=== PATIENT | female | born 1950 | race Caucasian/White ===

== ENCOUNTER 2016-12-23 16:20 | Emergency (ER) | payer BC, MEDICARE ==
--- NOTE | ~2016-12-23 | CR72 ---
[facility] A Service of [facility] RADIOLOGY TEXT RESULTS PATIENT: ELVA TYLER LOCATION: [facility] : 50 UNIT #: [id number] AGE: [address]: Abelino Yepez DO SEX: F ORDER DR: [id number] [facility] [address] [place], [place] [address] [id number] E MR#: [id number] Acc #: [id number] NAME: ELVA TYLER : 1950 SEX: F STUDY DATE/TIME: 12/23/2016 15:59 UNIT: [facility] ROOM: STUDY DESCRIPTION: CR Chest Single View Portable Attending Physician: Abelino Yepez D.O. Ordering Physician: Abelino Yepez D.O. Primary Care Physician: Priya Whaley M.D. MEDICAL IMAGING REPORT This report is preliminary unless electronic signature is present EXAM Portable chest, 12/23/2016 HISTORY Shortness of breath, cough and generalized weakness for 1 week, asthma. FINDINGS The heart is normal in size. There is poor inspiratory result with bibasilar atelectasis. The lungs are otherwise clear. There are no pleural effusions. IMPRESSION No active pulmonary disease. Dictated by... Benjy Strong M.D. THIS IS AN ELECTRONICALLY VERIFIED REPORT Benjy Strong M.D. at 12/24/2016 10:49 AM DOMINIK/millie TD: 12/23/2016 23:19 JOB #: [id number] MEDICAL IMAGING REPORT COPY
--- NOTE | ~2016-12-23 | EKG ---
PATIENT: ELVA TYLER UNIT #: [id number] Ventricular Rate: 60 BPM Atrial Rate: 60 BPM P-R Interval: 170 ms QRS Duration: 80 ms Q-T Interval: 434 ms QTC Calculation(Bezet): 434 ms P [place]: 14 degrees Calculated R [place]: -15 degrees Calculated T [place]: 15 degrees Diagnosis Line: Normal sinus rhythm Diagnosis Line: Normal ECG Diagnosis Line: No previous ECGs available Diagnosis Line: Confirmed by LIBORIO ADAM MD ([id number]) on 12/25/2016 Diagnosis Line: 7:23:43 PM INTERPRETING MD: KIA JONES
--- NOTE | ~2016-12-23 | CT16 ---
[facility] A Service [facility] RADIOLOGY TEXT RESULTS PATIENT: ELVA TYLER LOCATION: [facility] : 50 UNIT #: [id number] AGE: [address]: Abelino Yepez DO SEX: F ORDER DR: [id number] [facility] [address] [place], [place] [address] [id number] E MR#: [id number] Acc #: [id number] NAME: ELVA TYLER : 1950 SEX: F STUDY DATE/TIME: 12/23/2016 17:20 UNIT: [facility] ROOM: STUDY DESCRIPTION: CT Angio Chest for PE Attending Physician: Abelino Yepez D.O. Ordering Physician: Abelino Yepez D.O. Primary Care Physician: Priya Whaley M.D. MEDICAL IMAGING REPORT This report is preliminary unless electronic signature is present EXAM CTA chest PE protocol, 12/23/2016 INDICATIONS Chest pain and shortness of air for the past week. PROCEDURE Contrast-enhanced CTA of the chest with attention on opacification of the pulmonary arteries. Coronal 3-D MIP and sagittal reformatted images are reconstructed and submitted. 80 mL of Isovue-[address] exam was performed with one or more of the following radiation dose reduction techniques: automatic exposure control, adjustment of mA and/or kV according to patient size, and iterative reconstruction. COMPARISON None. FINDINGS Suboptimal contrast bolus but no definitive evidence for pulmonary embolus. No evidence for acute aortic injury. No adenopathy in the chest. No acute findings in the included upper abdomen. Lungs are clear. No pleural fluid or pneumothorax. No aggressive-appearing bone lesion. IMPRESSION No acute findings in the chest. No evidence for pulmonary embolus. Dictated by... Jonathan Candelaria M.D. [facility] A Service [facility] RADIOLOGY TEXT RESULTS PATIENT: ELVA TYLER LOCATION: [facility] : 50 UNIT #: [id number] AGE: [address]: Abelino Yepez DO SEX: F ORDER DR: THIS IS AN ELECTRONICALLY VERIFIED REPORT Jonathan Candelaria M.D. at 12/25/2016 6:59 AM ELSA/millie TD: 12/24/2016 00:00 JOB #: [id number] MEDICAL IMAGING REPORT COPY
[2016-12-23 16:17] LABS: BASOPHIL% 0.3 % (0-2.5); EOSINOPHIL# 0.4 X10e3 (0-0.7); EOSINOPHIL% 2.9 % (0.0-7.0); HEMATOCRIT 44.5 % (35.0-45.0); HEMOGLOBIN 14.8 gm/dL (12.0-16.0); LYMPHOCYTE# 5.1 X10e3 (1.0-3.5); LYMPHOCYTE% 34.6 % (17.0-45.0); MEAN CELL VOLUME 91.8 FL (83-96); MEAN CORPUSCULAR HEMOGLOBIN 30.4 PG (28-34); MEAN CORPUSCULAR HGB CONC 33.2 g/dL (30-36); MEAN PLATELET VOLUME 8.9 FL (6.5-11.5); MONOCYTE# 1.3 X10e3 (0-1.0); MONOCYTE% 8.6 % (3.0-12.0); NEUTROPHIL# 7.9 X10e3 (1.5-7.1); NEUTROPHIL% 53.6 % (40-75); PLATELET COUNT 257 X10e3 (140-420); RED BLOOD COUNT 4.85 X10e (3.90-5.30); RED CELL DISTRIBUTION WIDTH 14.8 % (11.0-15.5); WHITE BLOOD COUNT 14.7 X10e3 (4.0-10.5)
[2016-12-23 16:19] LABS: DIFF IND NO
[~2016-12-23 16:20] MED LIST: ACETAMINOPHEN PO; ADVAIR 1001 DISK W/D PO; ADVAIR 250-501 EACH IH; ADVAIR 2501 DISK W/D PO; ADVAIR INH; ADVIL200 M1 PO; ANEXSIA 5/325 M1 TA1 PO; ASPIRIN EC81 M1 PO; AUGMENTIN875 MG PO; BETAPACE PO; BETAPACE80 MG PO; CHOLESTEROL MED PO; DAZIDOX10 MG PO; HYDROCODON-ACE1 EACH PO; PROAIR HFA8.5 GM; SINGULAIR PO; SYMBICORT INH; TYLENOL PM EX-S1 TA4 PO; TYLENOL PM PO; VICODIN 5/500 T1 TAB PO; ZANAFLEX4 M1 PO; ZOCOR PO; ZOCOR10 MG PO; ZYVOX PO
[2016-12-23 16:29] LABS: POC - CKMB <1.0 ng/mL (0.0-7.9); POC - TROPONIN <0.05 ng/mL (<=0.05)
[2016-12-23 16:32] LABS: PARTIAL THROMBOPLASTIN TIME 22.3 SECONDS (23.5-31.3)
[2016-12-23 16:45] LABS: ALKALINE PHOSPHATASE 113 U/L (32-92); ALT (SGPT) 16 U/L (10-40); AST (SGOT) 12 U/L (10-42); BILIRUBIN, DIRECT 0.1 mg/dL (0.0-0.2); BILIRUBIN,INDIRECT 0.4 mg/dL (0.0-0.9); BILIRUBIN,TOTAL 0.5 mg/dL (0.2-2.0); BLOOD UREA NITROGEN 40 mg/dL (9-23); BUN/CREATININE RATIO 57.14; CALCIUM SERUM 9.8 mg/dL (8.4-10.2); CARBON DIOXIDE 22 mmol/L (22-31); CHLORIDE 106 mmol/L (100-111); CREATININE SERUM 0.7 mg/dL (0.6-1.4); GLOM FILT RATE Estimated ABOVE60 mL/min (>60); GLUCOSE FASTING 90 mg/dL (70-110); POTASSIUM 3.2 mmol/L (3.5-5.1); PROTEIN TOTAL SERUM 7.3 g/dL (6.0-8.3); SODIUM 137 mmol/L (135-145)
[2016-12-23 16:58] LABS: INFLUENZA A NEG (NEG); INFLUENZA B NEG (NEG)
[2016-12-23 19:22] LABS: POC - CKMB <1.0 ng/mL (0.0-7.9); POC - TROPONIN <0.05 ng/mL (<=0.05)
[2017-04-10] MEDS ORDERED: BETAPACE80 MG PO (13:26)
[2017-04-10] MEDS ORDERED: TOPAMAX25 MG PO (13:28)
[2017-04-10] MEDS ORDERED: PHENERGAN25 M1 PO (13:29)
[2017-04-10] MEDS ORDERED: IBUPROFEN IB200 M1 PO (13:31)
[2017-04-10] MEDS ORDERED: SALINE NASAL SPRAY (13:32)
[2017-04-17] MEDS ORDERED: ACETAMINOPHEN1 EAC1 (08:51)
== END 2016-12-23 21:05 | disposition home or self-care (01) ==
LOC: CED 16:20
PROVIDERS: Emergency Medicine
DX: R06.09 Other forms of dyspnea (principal); I48.91 Unspecified atrial fibrillation; J45.909 Unspecified asthma, uncomplicated; Z79.899 Other long term (current) drug therapy
CPT/HCPCS: 36415; 71010; 71275; 80048; 80076; 82553; 83880; 84484; 85025; 85379; 85610; 85730; 87804; 93005; 94640; 96374; 99284; J2930; Q9967

== ENCOUNTER → 2017-02-07 | Outpatient (CLI) | payer BC ==
[~2017-02-07] MED LIST changes: +ACETAMINOPHEN1 EAC1; +ACETAMINOPHEN1 EAC1 PO; +ADVAIR 250-501 EAC1 INH; +ASPIRIN81 MG PO; +BACTRIM DS TAB1 EACH PO; +COUMADIN3 MG PO; +ELIQUIS5 MG PO; +IBUPROFEN IB200 M1 PO; +OXYCODONE HCL10 MG PO; +PERCOCET10 PO; +PHENERGAN25 M1 PO; +SALINE NASAL SPRAY; +SIMVASTATIN20 MG PO; +SOTALOL AF80 M1 PO; +TIZANIDINE HCL4 M1 PO; +TOPAMAX25 MG PO
--- NOTE | ~2017-02-07 | US77 ---
[facility] A Service of [facility] RADIOLOGY TEXT RESULTS PATIENT: ELVA TYLER LOCATION: [facility] : 50 UNIT #: [id number] AGE: [address]: Tabitha Ramirez APRN SEX: F ORDER DR: [id number] [facility] [address] [place], [place] [address] [id number] O MR#: [id number] Acc #: [id number] NAME: ELVA TYLER : 1950 SEX: F STUDY DATE/TIME: 02/07/2017 9:47 UNIT: [facility] ROOM: STUDY DESCRIPTION: US Kidney Bilateral Complete Attending Physician: Tabitha Ramirez A.P.R.N. Ordering Physician: Tabitha Ramirez A.P.R.N. Primary Care Physician: Priya Whaley M.D. MEDICAL IMAGING REPORT This report is preliminary unless electronic signature is present EXAM Renal ultrasound INDICATION Renal cysts seen on MRI 8 weeks ago. PROCEDURE Powell-scale, Doppler imaging of the kidneys and bladder. COMPARISON None. FINDINGS The right kidney measures 10 cm in length. 1.8 cm cyst upper pole right kidney. Left kidney measures 10.1 cm. No hydronephrosis. There is a 1.1 cm cyst lower pole left kidney. The bladder is predominantly decompressed and not well evaluated. IMPRESSION Small bilateral renal cysts. No hydronephrosis. Dictated by... Jnoathan Candelaria M.D. THIS IS AN ELECTRONICALLY VERIFIED REPORT Jonathan Candelaria M.D. at 02/11/2017 8:21 AM ELSA/enio TD: 02/08/2017 08:03 JOB #: [id number] MEDICAL IMAGING REPORT [facility] A Service [facility] RADIOLOGY TEXT RESULTS PATIENT: ELVA TYLER LOCATION: [facility] : 50 UNIT #: [id number] AGE: [address]: Tabitha Ramirez APRN SEX: F ORDER DR: Page 1 of 1 COPY
== END | disposition home or self-care (01) ==
LOC: CWCC 09:21
DX: N28.1 Cyst of kidney, acquired (principal)
CPT/HCPCS: 76770

== ENCOUNTER → 2017-04-11 | Day surgery (SDC) | payer BC ==
--- NOTE | ~2017-04-11 | OR ---
Unit #: [id number] #: [id number] Patient: ELVA TYLER [id number] [address] [place], [place] [address] [id number] O MR#: [id number] NAME: ELVA TYLER ROOM: Date of Procedure: 04/11/2017 Admission Date: 04/11/2017 Surgeon: Rodrigue Preston M.D. : 1950 Attending Physician: Rodrigue Preston M.D. Referring Physician: Rodrigue Preston M.D. Primary Care Physician: Priya Whaley M.D. OPERATIVE REPORT PREOPERATIVE DIAGNOSES Radiculopathy, degenerative disk disease, spinal stenosis, and spondylolisthesis. POSTOPERATIVE DIAGNOSES Radiculopathy, degenerative disk disease, spinal stenosis, and spondylolisthesis. PROCEDURES PERFORMED Transforaminal epidural steroid injection x2 levels with intravenous sedation and fluoroscopic guidance for needle localization. INDICATIONS FOR PROCEDURE The patient is a 66-year-old female with previously mentioned diagnosis, nonsurgical pathology, treated medically in the past with translaminar epidural steroids, these lost her efficacy and she is having mainly the leg pains. Little over 6 months ago, a trial was given for right L3-L4 and L4-L5 transforaminal epidural injections. This resulted in greater than five months of fairly significant improvement. The patient has begun to have the pain returns, not exactly back to its baseline. Now, she is scheduled for total knee replacement in the right in the next few weeks. Plan is to repeat injection at this point to optimize the patient prior to her knee replacement, says she can rehabilitate more aggressively and effectively. DESCRIPTION OF PROCEDURE The patient was placed in a prone position. Standard monitors were applied. 2 mg of Versed were given for sedation and anxiolysis, which were adequate. Vital signs remained stable. Sterile prep and drape then of the lumbar area was performed. The skin to the right of midline and at the L3-L4 and L4-L5 level was localized with 1% lidocaine. A 22-gauge Quincke point long spinal needle was then advanced with biplanar fluoroscopic guidance to bring the needle to right L3-L4 and L4-L5 neural foramina respectively. The patient has mild paresthesia at each level, which quickly resolved with needle manipulation after confirming proper positioning with radiographic contrast and fluoroscopy. A dose of 2 mL of a mixture of 80 mg of Depo-Medrol and 3 mL of 0.25% bupivacaine were deposited at each of the neural foramina. The patient tolerated the procedure otherwise well. The needles were flushed and removed, and the patient was discharged to recovery room in stable condition. Unit #: [id number] #: [id number] Patient: ELVA TYLER Dictated by... Dajuan Chin/oliver TD: 04/12/2017 05:01 JOB #: [id number] OPERATIVE REPORT Page 1 of 1 X Rodrigue Preston MD X PROCEDURE OPERATIVE NOTE
== END | disposition home or self-care (01) ==
LOC: CCSC 07:41
DX: M51.16 Intervertebral disc disorders with radiculopathy, lumbar region (principal); M48.06 Spinal stenosis, lumbar region; M43.16 Spondylolisthesis, lumbar region
CPT/HCPCS: J1040; J2250

== ENCOUNTER → 2017-04-17 | Outpatient (CLI) | payer BC ==
--- NOTE | ~2017-04-17 | CO ---
Unit #: [id number] #: [id number] Patient: ELVA TYLER [id number] [address] [place], [place] [address] [id number] O MR#: [id number] NAME: ELVA TYLER ROOM: Age: 66 Sex: F Admission Date: 04/17/2017 : 1950 Attending Physician: Krishan Nur M.D. Primary Care Physician: Priya Whaley M.D. Consultation Date: 04/17/2017 CONSULTATION REPORT REASON FOR CONSULTATION Preoperative medical evaluation prior to right total knee arthroplasty scheduled by Dr. Nur for May 01, 2017. HISTORY OF PRESENT ILLNESS The patient is a 66-year-old female, who presents to preprocedural screening for the reasons indicated above. The patient complains of right knee pain but has no other complaints at this time. She denies upper chest, upper back, arm, neck, jaw pain or pressure. Denies shortness of air, dyspnea on exertion, PND, or recommendation for evaluation for sleep apnea. She is unsure if she snores. She denies lightheadedness, dizziness, presyncope, syncope. She reports intermittent but not recent heart palpitations. She is established with Dr. Medina and has already received preoperative cardiology clearance. She has been evaluated by Dr. Nur and scheduled for the above referenced procedure. PAST MEDICAL HISTORY 1. Osteoarthritis. 2. Obesity, BMI 33. 3. Diverticulitis and ulcerative colitis, status post ileostomy placement. 4. History of asthma. 5. History of tachycardia/murmur. 6. History of kidney stones. 7. History of situational depression. 8. History of GERD. 9. History of hyperlipidemia. 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 Preop hematology clearance is pending. 11. History of degenerative disk disease. 12. History of MRSA in 2002. 13. History of migraine headaches. 14. History of positive PPD, status post treatment. 15. Right knee pain. 16. Chronic back and neck pain established with Dr. Rodrigue Preston in pain management. PAST SURGICAL HISTORY 1. Ileostomy. 2. Appendectomy. 3. Cholecystectomy. 4. Excision, right breast cyst. 5. Laser surgery, left leg, for vein treatment. 6. D and C. Unit #: [id number] #: [id number] Patient: ELVA TYLER 7. Tonsillectomy. 8. I and D of vulvar cyst. 9. Right knee arthroscopy x3. 10. Lysis of adhesions, secondary to bowel obstruction. 11. Dental implant placed and removed, upper jaw. Please note, the patient denies a personal and family history of complications to anesthesia. ALLERGIES Karaya powder used on ileostomy causes severe skin reaction. CURRENT MEDICATIONS 1. Zocor 20 mg p.o. daily. 2. Aspirin EC 81 mg p.o. daily. 3. ProAir HFA two puffs inhaled q.4 hours p.r.n. shortness of air. 4. Advair 250/50 Diskus one puff inhaled b.i.d. 5. Dazidox 10 mg p.o. q.i.d. p.r.n. pain. 6. Zanaflex 4 mg p.o. t.i.d. 7. Betapace 120 mg p.o. b.i.d. 8. Topamax 50 mg p.o. at bedtime. 9. Phenergan 25 mg p.o. q.8 hours p.r.n. nausea and vomiting. 10. Ibuprofen 200 mg p.o. take two to three tabs p.r.n. as needed for pain. 11. Saline nasal spray one squirt in each nostril as needed. 12. Acetaminophen PM cap two caps p.o. at bedtime. SOCIAL HISTORY Denies tobacco use, ETOH, and illicit drug use. FAMILY HISTORY Per review of Dr. Nur's office note: Coronary artery disease and hypertension. REVIEW OF SYSTEMS A 10-point review of systems was conducted and otherwise negative except as indicated under history of present illness above. PHYSICAL EXAMINATION GENERAL: A 66-year-old female awake, alert in no acute distress. VITAL SIGNS: Temperature 98.2, heart rate 70, respiratory rate 18, blood pressure 127/87, oxygen saturation 97% on room air. HEENT: Atraumatic, normocephalic. Sclerae anicteric. No discharge from eyes, ears, or nares. LUNGS: No preauricular, postauricular, tonsillar, submental, anterior, posterior, cervical adenopathy. ENDOCRINE: No thyromegaly, thyroid nodules or tenderness. RESPIRATORY: Clear to auscultation in all frey bilaterally without wheezes, rhonchi, or rales. CARDIOVASCULAR: S1, S2. Regular rate and rhythm without murmur or rub. No carotid bruits. GASTROINTESTINAL: Bowel sounds positive x4. Soft, nontender, nondistended. EXTREMITIES: No edema, cyanosis, or clubbing. NEUROLOGIC: Alert and oriented x3. Speech clear. Cranial nerves II-XII grossly intact. Follows directions for examination. Unit #: [id number] #: [id number] Patient: ELVA TYLER DIAGNOSTIC STUDIES LABORATORY: WBC 9.7, hemoglobin 14.1, hematocrit 43.1, platelets 259,000. Sodium 139, potassium 4.3, chloride 110, CO2 of 22, glucose 100, BUN 15, creatinine 0.7, calcium 9.8. AST 18, ALT 13, alkaline phosphatase 108, bilirubin total 104, total protein 7.1, albumin 3.9. PT 10.2, INR 0.9. Blood type B positive. Antibody screen negative. MRSA nasal swab report pending at this time. IMAGING: Two view chest x-ray, December 23, 2016: Impression - no active pulmonary disease. CARDIOVASCULAR: A 12-lead EKG, December 23, 2016: Normal sinus rhythm. Normal ECG confirmed by Dr. Garcias. IMPRESSION The patient is a 66-year-old female who presents to preprocedural screening for: 1. Preoperative medical evaluation prior to right total knee arthroplasty scheduled by Dr. Nur. The patient's Valderrama Revised Cardiac Risk Index is equal to 0.4% based on information available today. This represents the patient's perioperative risk of fatal or nonfatal myocardial infarction, cardiopulmonary arrest, arrhythmia, and/or pulmonary edema. This has been discussed in detail with the patient. She wishes to proceed with surgery as scheduled at this time. 2. Obesity: Body mass index 33. 3. History of diverticulitis and ulcerative colitis: The patient is stable. She says she has no flares. She is established with her PCP, Dr. Priya Whaley. 4. History of asthma: Stable. 5. History of tachycardia/murmur. 6. History of atrial fibrillation: The patient has received preop cardiac clearance for the upcoming surgery from Dr. Medina. Will place the patient on monitoring specialist postoperatively and consult Dr. Medina p.r.ching. 7. History of kidney stones. 8. History of situational depression. 9. History of gastroesophageal reflux disease. 10. Hyperlipidemia: Continue current medications. 11. History of blood dyscrasia: Patient states factor II; however, no information is available in this regard today. The patient has an appointment to see Dr. Hull on April 22, 2017 for preop cardiac clearance. 12. History of degenerative disk disease. 13. History of methicillin-resistant Staphylococcus aureus in 2002. 14. History of migraine headaches. 15. History of positive PPD, status post treatment. 16. Right knee pain. 17. Chronic back and neck pain, patient is established with Dr. Rodrigue Preston. He will be consulted to follow the patient postoperatively for assistance with Dr. Nur and pain management. 18. History of recent issues regarding dental implants. The patient has an appointment at [facility] at 2 p.m. for preoperative dental clearance. Thank you for allowing us to participate in the care of this patient. Will gladly follow patient for postop medical management pending preoperative hematology clearance, preoperative dental clearance, and Unit #: [id number] #: [id number] Patient: ELVA TYLER order of Dr. Nur. Dictated by... Tiffanie Myers A.P.R.N. for Dajuan Barajas/nicki TD: 04/17/2017 14:26 JOB #: [id number] CONSULTATION REPORT Page 1 of 1 X Tiffanie Myers APRN X CONSULTATION REPORT
[2017-04-17 08:47] LABS: HEMATOCRIT 43.1 % (35.0-45.0); HEMOGLOBIN 14.1 gm/dL (12.0-16.0); MEAN CELL VOLUME 93.4 FL (83-96); MEAN CORPUSCULAR HEMOGLOBIN 30.6 PG (28-34); MEAN CORPUSCULAR HGB CONC 32.7 g/dL (30-36); MEAN PLATELET VOLUME 8.9 FL (6.5-11.5); RED BLOOD COUNT 4.62 X10e (3.90-5.30); RED CELL DISTRIBUTION WIDTH 12.6 % (11.0-15.5); WHITE BLOOD COUNT 9.7 X10e3 (4.0-10.5)
[2017-04-17 09:00] LABS: INR 0.9; PROTHROMBIN TIME (PATIENT) 10.2 SECONDS (10.0-11.7)
[2017-04-17 09:08] LABS: ALBUMIN SERUM 3.9 g/dL (3.5-5.0); BILIRUBIN,TOTAL 0.4 mg/dL (0.2-2.0); BUN/CREATININE RATIO 21.42; CALCIUM SERUM 9.8 mg/dL (8.4-10.2); CREATININE SERUM 0.7 mg/dL (0.6-1.4); GLOM FILT RATE Estimated 90.3 mL/min (>60); POTASSIUM 4.3 mmol/L (3.5-5.1); PROTEIN TOTAL SERUM 7.1 g/dL (6.0-8.3)
[2017-04-17 10:31] LABS: URINE APPEARANCE CLEAR; URINE BILIRUBIN NEG (NEG); URINE BLOOD TRACE (NEG); URINE COLOR YELLOW; URINE GLUCOSE NEG (NEG); URINE KETONE NEG (NEG); URINE LEUKOCYTE ESTERASE NEG (NEG); URINE NITRATE NEG (NEG); URINE PROTEIN NEG (NEG); URINE SPECIFIC GRAVITY 1.013 (1.003-1.035); URINE UROBILINOGEN 0.2 MG/DL (NEG)
[2017-04-17 10:40] LABS: URINE BACTERIA AUWI NEG (NEGATIVE); URINE SQUAMOUS EPITHELIAL CELL NONE SEEN /[HPF]
[2017-04-17 10:44] LABS: CULTURE INDICATED? NO
[2017-04-17 10:45] LABS: URINE SOURCE CLEAN CATCH
== END | disposition home or self-care (01) ==
LOC: CAMB 08:00
PROVIDERS: Orthopaedic Surgery
DX: Z01.812 Encounter for preprocedural laboratory examination (principal); M17.11 Unilateral primary osteoarthritis, right knee
CPT/HCPCS: 36415; 80053; 81003; 85027; 85610; 86850; 86900; 86901; 87070

== ENCOUNTER 2017-05-01 05:44 | Inpatient (IN) | payer BC, MEDICARE ==
[~2017-05-01] VITALS: Ht 154.9 cm; Wt 74.5 kg
--- NOTE | ~2017-05-01 | DS ---
Unit #: [id number] #: [id number] Patient: ELVA TYLER [id number] [facility] [address] [place], [place] [address] [id number] MR#: [id number] NAME: ELVA TYLER. ROOM: 450 Age: 66 Sex: F Admission Date: 05/01/2017 : 1950 Discharge Date: 05/02/2017 Attending Physician: Krishan Nur M.D. Primary Care Physician: Priya Whaley M.D. DISCHARGE SUMMARY REASON FOR ADMISSION Severe osteoarthritis of her right knee. PROCEDURE Right total knee arthroplasty. HOSPITAL COURSE The patient was admitted to [facility] with a history of severe osteoarthritis. The patient had undergone above procedure. The patient tolerated the procedure well. She did have some pain last night. She does see Dr. Preston, so we will have Dr. Preston see her prior to leaving to go home later today if she is doing okay. Today, she is in stable condition. Her temperature is 98. Blood pressure is 109/74, heart rate 65 and regular, respirations 20. Her incision is healing well. Neurovascular exam is intact. She had 2+ pulses in her lower extremities bilaterally. The plan will be to discharge her home later today if her pain is under control. DISPOSITION Home with [facility]. DIAGNOSTIC STUDIES LABORATORY: Pertinent labs: Her PT was 22. Her INR is 2. MEDICATIONS She will be on her regular home medications with the addition of Percocet 10/325 and Coumadin. Her Coumadin will be held today because her INR did go up to 2 since yesterday. I suspect it will be higher tomorrow. FOLLOWUP INSTRUCTIONS The patient will be under the care of [facility]. The patient will need PT/INRs done on May 03, May 04, and then every Saturday and thereafter. Call the results to [phone] or fax to [phone], attention Oct. The patient should wear RIMA hose during the day and off at night. The patient should not drive until seen by Dr. Nur on June 11, 2017. The patient will participate in physical therapy including active-active assist range of motion, strengthening, begin with a walker and progress to cane as tolerated. Dictated by... Gee Bejarano P.A.-C- for Krishan Nur M.D. Unit #: [id number] #: [id number] Patient: ELVA TYLER TD: 05/02/2017 09:35 JOB #: [id number] DISCHARGE SUMMARY Page 1 of 1 X X DISCHARGE SUMMARY
--- NOTE | ~2017-05-01 | OR ---
Unit #: [id number] #: [id number] Patient: ELVA TYLER [id number] [address] [place], [place] [address] [id number] MR#: [id number] NAME: ELVA TYLER ROOM: [facility] Date of Procedure: 05/01/2017 Admission Date: 05/01/2017 Surgeon: Krishan Nur M.D. : 1950 Attending Physician: Krishan Nur M.D. Primary Care Physician: Priya Whaley M.D. OPERATIVE REPORT PREOPERATIVE DIAGNOSIS Osteoarthritis of the right knee. POSTOPERATIVE DIAGNOSIS Osteoarthritis of the right knee. PROCEDURE PERFORMED Right total knee. ASSISTANTS Radha Bautista and Moraima Briones. ANESTHESIA Adductor canal block plus general. ESTIMATED BLOOD LOSS 100 mL. INDICATIONS FOR SURGERY This is a 66-year-old lady with severe pain in her right knee. She has had pain for years. It has been getting progressively worse. Her leg has been going into more and more valgus. X-rays show she has [id number] with complete joint space loss on the lateral side. She has tried injections and anti-inflammatories with no relief of her discomfort and the pain is gotten to the point where it interferes with her walking and standing and it wakes her at night. She is brought to the hospital for right total knee. DESCRIPTION OF PROCEDURE The patient was brought to the holding room, given 1 g of Kefzol and 1500 mg of vancomycin. She was then given an adductor canal block, brought back to the operating room, given a general anesthetic. Tourniquet placed around the right thigh. The right leg was prepped and draped in a sterile fashion. Tourniquet inflated to 250. A straight anterior skin incision was made. The subcutaneous dissected away and a medial arthrotomy performed. Patella was slid to the side. Osteophytes removed from the femur. The intramedullary guide was used and a 5 degree valgus cut was made on the distal femur. The femur was sized and found to be a size 4. The anterior-posterior cutting block was applied. Rotation was checked in the knee. Anterior and posterior cuts were made along with the chamfer cuts. Proximal tibial cut was made using a 0-degree cutting block. It was sized at a 3. We then removed any remaining meniscal fragments. Unit #: [id number] #: [id number] Patient: ELVA TYLER Trial femur was applied. The drill holes were made for lugs on the femoral component. Trial tibia was applied with an 8 insert and it was found that the 8 insert was the appropriate thickness. The patella was grasped with 2 towel clips, measured 23 mm thick, cut smooth at 13 and a 38 patella was the appropriate size. Three drill holes were made. Trial patella applied and it tracked properly. We then removed all the trials, used the drill and punch for the tibial tray. The knee was irrigated and dried while the cement was mixed and all 3 components were cemented simultaneously. Once again, it was a size 4 femur cruciate retaining, size 3 tray and a 38 patella from the [employer] knee system. Any excess cement was removed. After the cement was hardened, it was judged that the 8 insert was the appropriate thickness, so this was opened and applied to the tray. The rest of ropivacaine mixture was injected. The tourniquet was released. Hemostasis obtained. Wound irrigated with both Betadine and bacitracin and then closed using 0 Ethibond in the arthrotomy, 0 and 2-0 Vicryl in the subcutaneous. The skin was closed with subcuticular and Prineo closure system. Dictated by... Dajuan Canada/oliver TD: 05/01/2017 12:50 JOB #: [id number] OPERATIVE REPORT Page 1 of 1 X Krishan Nur MD PROCEDURE OPERATIVE NOTE
[~2017-05-01 05:44] MED LIST changes: -ACETAMINOPHEN1 EAC1 PO; -ADVAIR 250-501 EAC1 INH; -ASPIRIN81 MG PO; -BACTRIM DS TAB1 EACH PO; -COUMADIN3 MG PO; -ELIQUIS5 MG PO; -OXYCODONE HCL10 MG PO; -PERCOCET10 PO; -SIMVASTATIN20 MG PO; -SOTALOL AF80 M1 PO; -TIZANIDINE HCL4 M1 PO
[2017-05-01 07:06] LABS: PROTHROMBIN TIME (PATIENT) 10.8 SECONDS (10.0-11.7)
[2017-05-02 03:34] LABS: HEMATOCRIT 35.2 % (35.0-45.0); HEMOGLOBIN 11.2 gm/dL (12.0-16.0)
[2017-05-02 03:55] LABS: BUN/CREATININE RATIO 16.66; CALCIUM SERUM 8.8 mg/dL (8.4-10.2); CREATININE SERUM 0.6 mg/dL (0.6-1.4); MAGNESIUM 1.8 mg/dL (1.6-3.0); POTASSIUM 3.4 mmol/L (3.5-5.1)
[2017-05-02] MEDS ORDERED: COUMADIN3 MG PO (13:35)
[2017-05-02] MEDS ORDERED: PERCOCET10 PO (13:36)
== END 2017-05-02 15:30 | disposition home health service (06) | DRG 470 ==
LOC: CSUR 05:44 → CPACUOF 08:25 → C4B 08:25 → CSUR 08:25 → CPACUOF 09:10 → C4B 10:30 → CPACUOF 10:30 → C4B 05-02 15:30
PROVIDERS: Nurse Practitioner; Orthopaedic Surgery
PROC: 0SRC0J9 Replacement of Right Knee Joint with Synthetic Substitute, Cemented, Open Approach (ICD-10-PCS; principal; 2017-05-01 07:00)
DX: M17.11 Unilateral primary osteoarthritis, right knee (principal); D68.51 Activated protein C resistance; I48.91 Unspecified atrial fibrillation; J45.909 Unspecified asthma, uncomplicated; Z90.49 Acquired absence of other specified parts of digestive tract; E66.9 Obesity, unspecified; Z68.33 Body mass index [BMI] 33.0-33.9, adult; Z87.442 Personal history of urinary calculi; Z86.14 Personal history of Methicillin resistant Staphylococcus aureus infection; K21.9 Gastro-esophageal reflux disease without esophagitis; F43.21 Adjustment disorder with depressed mood; G89.29 Other chronic pain
CPT/HCPCS: 80048; 83735; 85014; 85018; 85610; 94664; 94760; 97110; 97116; 97161; 97530; 97535; C1776; G8978-GP; G8979-GP; G8980-GP; J0171; J0690; J0735; J1100; J1170; J1885; J2405; J2550; J2795; J3010; J3370

== ENCOUNTER 2017-07-01 17:47 | Inpatient (IN) | payer BC ==
[~2017-07-01] VITALS: Ht 154.9 cm; Wt 77.1 kg
--- NOTE | ~2017-07-01 | HP ---
Unit #: [id number] #: [id number] Patient: ELVA TYLER [id number] [address] [place], [place] [address] [id number] I MR#: [id number] NAME: ELVA TYLER. ROOM: 461 Age: 66 Sex: F Admission Date: 07/01/2017 : 1950 Attending Physician: Yoly Macario M.D. Primary Care Physician: Priya Whaley M.D. HISTORY AND PHYSICAL CHIEF COMPLAINT Right ankle pain. HISTORY This pleasant 66-year-old female with ulcerative colitis, paroxysmal atrial fibrillation anticoagulated, history of MRSA and DJD, is admitted for complaints of right ankle pain. The patient underwent a right total knee replacement by Dr. Nur on 05/01/2017. States that she was well until last evening when she developed increasing right ankle pain with some swelling. Denies fever, sweats, chills. Presented to this emergency department where she has obvious swelling of the right ankle with increased warmth and redness. Has limited range of motion due to fairly significant pain. X-rays reveal soft tissue swelling and osteopenia. A Doppler of the right leg was negative for a DVT. The patient is anticoagulated. She was given clindamycin in the ER. Patient denies injury to the right ankle. PAST MEDICAL HISTORY 1. DJD. 2. Ulcerative colitis, diverticular disease status post ileostomy. 3. Asthma. 4. Paroxysmal atrial fibrillation, anticoagulated on Sotalol. 5. Chronic headaches. 6. Kidney stone. 7. GERD. 8. Hyperlipidemia. 9. Possible hypercoagulable state. 10. History of MRSA 2002. 11. Migraine headaches. 12. Positive PPD requiring treatment. 13. Chronic neck and back pain, followed by Dr. Preston. 14. Ileostomy. 15. Appendectomy. 16. Cholecystectomy. 17. Excision right breast cyst. 18. Laser surgery left leg for vein treatment. 19. D and C. 20. Tonsillectomy. 21. I and D of a vulvar cyst. 22. Right knee arthroscopy x3 and ultimately a right total knee replacement. Unit #: [id number] #: [id number] Patient: ELVA TYLER 23. Lysis of adhesions secondary to a bowel obstruction. 24. Dental implants and removal. ALLERGIES Karaya. HOME MEDICATIONS 1. Eliquis 5 mg b.i.d. 2. Oxycodone 10 mg q.i.d. 3. Zocor 20 mg q. h.s. 4. Aspirin 81 mg daily. 5. Zanaflex 4 mg t.i.d. 6. Tylenol PM 2 tablets at bedtime as needed. 7. Topamax 25 mg b.i.d. 8. Phenergan 25 mg b.i.d. p.r.n. 9. Sotalol 120 mg b.i.d. 10. Advair 250/50 1 puff b.i.d. FAMILY HISTORY Positive for CAD. SOCIAL HISTORY The patient lives alone, lifelong nonsmoker, does not drink alcohol. REVIEW OF SYSTEMS Notable for right ankle pain, swelling, DJD, asthma, PAF, GERD, hyperlipidemia, kidney stones, above mentioned surgeries, chronic pain and migraines. All other systems were reviewed and are otherwise negative. REVIEW OF SYSTEMS Notable for cough, fever, shortness of breath, PTSD, aortic insufficiency, anxiety, depression, reflux, asthma, DJD, [place], hypertension, T and A, D and C, hysterectomy, cholecystectomy, T and A. All other systems reviewed are negative. PHYSICAL GENERAL: Pleasant 66-year-old moderately obese female, currently in no acute distress. VITAL SIGNS: Temperature 98.5, pulse 82, respirations 16, blood pressure 121/70. O2 saturation 97% on room air. HEENT: Eyes PERRLA. Extraocular muscles are intact. Pharynx is benign. NECK: Supple without adenopathy or thyromegaly. CHEST: Clear. CARDIAC: Normal S1 and S2 without murmur. ABDOMEN: Bowel sounds are present. Patient has an ileostomy left side of the abdomen. No tenderness or hepatosplenomegaly. EXTREMITIES: Notable for redness, swelling of the right ankle and pain, particularly with range of motion of the right ankle. No open lesions that I can see. NEUROLOGIC EXAM: Patient is awake, alert, oriented. Cranial nerves are intact, equal strength throughout. DIAGNOSTIC STUDIES LABS: Hematocrit is 44, white blood count is 15.4, normal platelet count. SMA-7 is normal. C-reactive protein 3.1, sed rate 9. Unit #: [id number] #: [id number] Patient: ELVA TYLER IMAGING: X-ray of the right ankle - soft tissue swelling, osteopenia. Doppler of the right leg negative for DVT. ASSESSMENT 1. Right ankle cellulitis, rule out septic arthritis of the right ankle. 2. Paroxysmal atrial fibrillation, currently in a sinus rhythm, anticoagulated on sotalol. 3. DJD, status post right total knee replacement in April. 4. Ulcerative colitis, status post ileostomy. 5. History of MRSA. 6. Chronic pain. PLANS 1. Blood cultures. 2. Vancomycin and Rocephin. 3. Orthopedic surgeon to see. 4. Supportive treatment. Dictated by Yoly Macario M.D. AML/df TD: 07/02/2017 05:28 JOB #: [id number] HISTORY AND PHYSICAL Page 1 of 1 X Yoly Macario MD X HISTORY AND PHYSICAL
--- NOTE | ~2017-07-01 | CO ---
Unit #: [id number] #: [id number] Patient: ELVA TYLER [id number] [address] [facility]. [place], [place] [address] [id number] I MR#: [id number] NAME: ELVA TYLER. ROOM: 461 Age: 66 Sex: F Admission Date: 07/01/2017 : 1950 Attending Physician: Bessie Carpenter M.D. Primary Care Physician: Priya Whaley M.D. Consultation Date: 07/02/2017 CONSULTATION REPORT ADMITTING PHYSICIAN Dr. Macario CONSULTING PHYSICIAN Dr. Krishan Nur REASON FOR CONSULTATION Right ankle pain and swelling. HISTORY OF PRESENT ILLNESS Patient is a very pleasant 66-year-old female who had recently undergone right total knee replacement on 05/01/2017. The patient was doing great until Saturday when she got up and had increased right ankle pain and swelling. The patient reports she does not have any pain in the right knee. The patient reports her pain was a 10 on a scale of 1 to 10. She did come into the hospital yesterday. This came up suddenly for her. She has a history of MRSA. The patient reports that she had increased warmth and swelling/redness in her right ankle. She had limited range of motion. The patient reports her pain was a 10 on a scale of 1 to 10, all localized in her right ankle. A Doppler was done to rule out DVT. The patient reports since yesterday her ankle pain has improved and the swelling has gotten some better. The patient is on vancomycin at this point. The patient denied any fever or chills. PAST MEDICAL HISTORY 1. DJD. 2. Ulcerative colitis and diverticular disease, status post ileostomy. 3. Asthma. 4. Paroxysmal atrial fibrillation. 5. Chronic headaches. 6. Kidney stones. 7. Reflux. 8. Hyperlipidemia. 9. History of MRSA in 2002. 10. Migraine headaches. 11. Positive PPD requiring treatment. 12. Chronic neck and back pain, followed by Dr. Preston. 13. Ileostomy. 14. Appendectomy. 15. Excision of right breast cyst. 16. Laser surgery on left leg for vein treatment. 17. D and C. 18. Tonsillectomy. 19. I and D of vulvar cyst. Unit #: [id number] #: [id number] Patient: ELVA TYLER 20. Right knee arthroscopy x3 and ultimately a right total knee replacement. 21. Lysis of adhesions secondary to bowel obstruction. 22. Dental implants removal. ALLERGIES Karaya. HOME MEDICATIONS 1. Eliquis 5 mg b.i.d. 2. Oxycodone 10 mg q.i.d. 3. Zocor 20 mg q. h.s. 4. Aspirin 81 mg daily. 5. Zanaflex 4 mg t.i.d. 6. Tylenol PM 2 tablets at bedtime as needed. 7. Topamax 25 mg b.i.d. 8. Phenergan 25 mg b.i.d. p.r.n. 9. Sotalol 120 mg b.i.d. 10. Advair 250/500 1 puff b.i.d. SOCIAL HISTORY The patient lives alone. Lifetime nonsmoker, nondrinker. FAMILY HISTORY Positive for coronary artery disease. REVIEW OF SYSTEMS CONSTITUTIONAL: Denies any weight gain or weight loss. EYES: Denies any double vision or blurred vision. LUNGS: Denies any shortness of air or chronic cough. CARDIOVASCULAR: Denies any chest pain but admits to history of paroxysmal atrial fibrillation but does take Eliquis for this. ABDOMEN: Denies any nausea or vomiting. MUSCULOSKELETAL: Admits to right ankle pain. 12 complete systems in total reviewed and negative other than above. PHYSICAL EXAM GENERAL: She is well developed, well nourished in no acute distress. She is alert and oriented x3. VITAL SIGNS: Temperature is 98.3, blood pressure 94/60, heart rate 66 and regular, respirations 16. HEENT: Normocephalic, atraumatic. PERRLA. Extraocular movements intact. Conjunctivae clear. NECK: Supple. No thyromegaly. LUNGS: Clear to auscultation. No accessory muscle use. Equal expansion bilaterally. CARDIOVASCULAR: S1, S2. ABDOMEN: Soft, nontender, positive bowel sounds. MUSCULOSKELETAL: Examination of the patient's right knee reveals no obvious deformities noted. No mass or effusion. She has a well-healed incision in her right knee. Her range of motion is 0 degrees of extension, 110 degrees flexion. Her medial and lateral ligaments are stable without subluxation (1) . Quad and hamstring strength 5/5. Examination of the patient's right ankle reveals she does have soft tissue swelling and erythema, mostly on the medial side of her right ankle. The patient did have full range of motion. She had good strength. She had 2+ pulses in her lower extremities. Unit #: [id number] #: [id number] Patient: ELVA TYLER SKIN: Warm and dry and intact. There were no open wounds. There is no drainage. EXTREMITIES: No clubbing, cyanosis or edema other than noted above. SKIN: No rashes, lesions or ulcers other than noted above. DIAGNOSTIC STUDIES IMAGING: Right ankle did show soft tissue swelling and osteopenia. LABORATORY: Her WBC was 15.4, hemoglobin 14.3. Her sodium is 137, potassium 3.7, chloride 104, CO2 26, BUN 15, creatinine 0.8, glucose 97. ASSESSMENT Right ankle pain and swelling improving. PLAN At this point, I would wait and watch to see if this doesn't improve on IV vancomycin. If she continues to have problems, we need to think about an MRI versus a right ankle aspiration. Dictated by... Gee Bejarano P.A.-C- for Krishan Nur M.D. CATERINA/anoop TD: 07/02/2017 13:34 JOB #: [id number] CONSULTATION REPORT Page 1 of 1 X X CONSULTATION REPORT
--- NOTE | ~2017-07-01 | DS ---
Unit #: [id number] #: [id number] Patient: ELVA GUTIERREZ [id number] [address] [place], [place] [address] [id number] I MR#: [id number] NAME: ELVA GUTIERREZ. ROOM: 461 Age: 66 Sex: F Admission Date: 07/01/2017 : 1950 Discharge Date: 07/03/2017 Attending Physician: Bessie Carpenter M.D. Primary Care Physician: Priya Whaley M.D. DISCHARGE SUMMARY PRINCIPAL DIAGNOSES 1. Sepsis secondary to right ankle cellulitis. 2. Paroxysmal atrial fibrillation currently maintained in normal sinus rhythm and on anticoagulation. 3. History of ulcerative colitis, status post ileostomy. 4. Asthma. 5. Gastroesophageal reflux disease. 6. Hyperlipidemia. 7. History of chronic headaches. 8. Obesity. CONSULTANTS Dr. Nur, orthopedic surgery PROCEDURES 1. X-ray of right ankle on July 01, 2017 with osteopenia, soft tissue swelling around the right ankle, no acute fracture. 2. Right lower extremity venous Doppler, which was negative for DVT. CLINICAL HISTORY AND HOSPITAL COURSE Ms. Gutierrez is a really nice 66-year-old female who presents to the emergency department with redness and swelling of the right ankle. Please refer to H&P for further details. Examination in the emergency department was most consistent with cellulitis. X-ray of the ankle was also most consistent with cellulitis. Patient was found to have an elevated white blood cell count of approximately 15,000, but she was afebrile. She was subsequently admitted. Patient was started on empiric vancomycin and Rocephin. She has remained afebrile throughout her hospitalization, but white blood cell count remained stable at approximately 15,000. However, examination of her ankle revealed significant improvement of erythema and swelling since being on antibiotic therapy. She does have a history of MRSA greater than 10 years ago, which was relatively sensitive. She has also undergone a recent MRSA nasal swab, which was negative, for a preoperative evaluation of a right knee replacement. I am going to place her on Bactrim therapy. I have also noted uric acid level was done and this is unremarkable. Pain is much improved, range of motion is normal and she will be discharged home. DISCHARGE CONDITION Stable. DISCHARGE STATUS Unit #: [id number] #: [id number] Patient: ELVA GUTIERREZ Discharge to home. DISCHARGE MEDICATIONS 1. Advair 250/50 one puff b.i.d. 2. Tylenol PM two tablets at bedtime p.r.n. for insomnia 3. Eliquis 5 mg b.i.d. 4. Topamax 25 mg b.i.d. 5. Phenergan 25 mg p.o. b.i.d. p.r.n. for nausea/vomiting 6. Sotalol 120 mg b.i.d. 7. Simvastatin 20 mg at bedtime 8. Aspirin 81 mg daily 9. Oxycodone 10 mg p.o. four times daily 10. Zanaflex 4 mg p.o. t.i.d. 11. Bactrim-DS one tablet b.i.d. for another 8 days DISCHARGE INSTRUCTIONS Patient was instructed to follow a Heart Healthy diet. She can increase her activity as tolerated. FOLLOWUP Patient will follow up with her primary care provider, Dr. Priya Whaley, in 2 weeks. Dictated by... Bessie Carpenter M.D. CONNIE/niki TD: 07/04/2017 07:36 JOB #: [id number] DISCHARGE SUMMARY Page 1 of 1 X Bessie Carpenter MD DISCHARGE SUMMARY
--- NOTE | ~2017-07-01 | CR21 ---
[facility] A Service of [facility] & [facility] RADIOLOGY TEXT RESULTS PATIENT: ELVA TYLER LOCATION: [place] [address]- : [birth year] UNIT #: [id number] AGE: [address]: Bessie Carpenter MD SEX: F ORDER DR: [id number] [facility] [address] [facility]. [address] [id number] I MR#: [id number] Acc #: [id number] NAME: ELVA TYLER : 1950 SEX: F STUDY DATE/TIME: 07/01/2017 19:59 UNIT: [facility] ROOM: [facility] STUDY DESCRIPTION: CR Ankle Min 3 Views Rt Attending Physician: Bessie Carpenter M.D. Ordering Physician: Franko Chappell M.D. Primary Care Physician: Priya Whaley M.D. MEDICAL IMAGING REPORT This report is preliminary unless electronic signature is present EXAM Right ankle 3 views 07/01/2017 HISTORY Right ankle pain and swelling beginning today. No known injury. FINDINGS 3 views of the right ankle demonstrate no fracture. The bones are osteopenic. Ankle mortise is intact. There is soft tissue swelling about the right ankle. 5 mm plantar calcaneal spur is noted. IMPRESSION 1. Osteopenia. No evidence of fracture. 2. Soft tissue swelling about the right ankle. Dictated by... Benjy Strong M.D. THIS IS AN ELECTRONICALLY VERIFIED REPORT Benjy Strong M.D. at 07/02/2017 2:19 PM DOMINIK/vladimir TD: 07/02/2017 12:04 JOB #: [id number] MEDICAL IMAGING REPORT Page 1 of 1 COPY
--- NOTE | ~2017-07-01 | US85 ---
[facility] A Service [facility] RADIOLOGY TEXT RESULTS PATIENT: ELVA TLYER LOCATION: [place] [address] : [birth year] UNIT #: [id number] AGE: [address]: Bessie Carpenter MD SEX: F ORDER DR: [id number] [facility] [address] [place], [place] [address] [id number] I MR#: [id number] Acc #: [id number] NAME: ELVA TYLER. : 1950 SEX: F STUDY DATE/TIME: 07/01/2017 20:24 UNIT: [facility] ROOM: [facility] STUDY DESCRIPTION: US LE Veins Unilat or Ltd Stdy Attending Physician: Bessie Carpenter M.D. Ordering Physician: Franko Chappell M.D. Primary Care Physician: Priya Whaley M.D. MEDICAL IMAGING REPORT This report is preliminary unless electronic signature is present EXAM Right lower extremity venous duplex 07/01/2017 HISTORY Right lower extremity pain and edema and redness for 1 day. Evaluate for deep vein thrombosis. TECHNIQUE Venous ultrasound examination of the right lower extremity was performed using grayscale, spectral Doppler and color flow Doppler imaging. FINDINGS The examination is negative. There is no evidence of right lower extremity deep venous thrombus from the groin to the lower calf. Visualized greater saphenous vein is also patent. IMPRESSION Negative examination. No evidence of right lower extremity deep venous thrombosis. Dictated by... Benjy Strong M.D. THIS IS AN ELECTRONICALLY VERIFIED REPORT Benjy Strong M.D. at 07/02/2017 2:22 PM KRT/lb TD: 07/02/2017 12:27 JOB #: [id number] [facility] A Service [facility] RADIOLOGY TEXT RESULTS PATIENT: ELVA TYLER LOCATION: [place] [address] : [birth year] UNIT #: [id number] AGE: [address]: Bessie Carpenter MD SEX: F ORDER DR: MEDICAL IMAGING REPORT Page 1 of 1 COPY
[~2017-07-01 17:47] MED LIST changes: +COUMADIN3 MG PO; +PERCOCET10 PO
[2017-07-01 20:17] LABS: BASOPHIL# 0.1 X10e3 (0-0.3); BASOPHIL% 0.7 % (0-2.5); EOSINOPHIL# 0.3 X10e3 (0-0.7); EOSINOPHIL% 1.8 % (0.0-7.0); HEMOGLOBIN 14.3 gm/dL (12.0-16.0); LYMPHOCYTE# 3.3 X10e3 (1.0-3.5); LYMPHOCYTE% 21.7 % (17.0-45.0); MEAN CELL VOLUME 91.6 FL (83-96); MEAN CORPUSCULAR HEMOGLOBIN 29.7 PG (28-34); MEAN CORPUSCULAR HGB CONC 32.5 g/dL (30-36); MEAN PLATELET VOLUME 8.2 FL (6.5-11.5); MONOCYTE# 1.9 X10e3 (0-1.0); MONOCYTE% 12.6 % (3.0-12.0); NEUTROPHIL# 9.7 X10e3 (1.5-7.1); NEUTROPHIL% 63.2 % (40-75); PLATELET COUNT 248 X10e3 (140-420); RED CELL DISTRIBUTION WIDTH 15.5 % (11.0-15.5); WHITE BLOOD COUNT 15.4 X10e3 (4.0-10.5)
[2017-07-01 20:18] LABS: DIFF IND YES
[2017-07-01 20:26] LABS: PARTIAL THROMBOPLASTIN TIME 22.9 SECONDS (23.5-31.3)
[2017-07-01 20:29] LABS: BUN/CREATININE RATIO 18.75; CALCIUM SERUM 9.4 mg/dL (8.4-10.2); CREATININE SERUM 0.8 mg/dL (0.6-1.4); GLOM FILT RATE Estimated 76.9 mL/min (>60); POTASSIUM 3.7 mmol/L (3.5-5.1)
[2017-07-01 20:31] LABS: PROTHROMBIN TIME (PATIENT) 10.7 SECONDS (10.0-11.7)
[2017-07-01 20:34] LABS: ANISOCYTOSIS MOD; PLATELET ESTIMATE NORMAL (NORMAL); POIKILOCYTOSIS SL
[2017-07-01 20:38] LABS: URIC ACID 4.1 mg/dL (2.6-7.2)
[2017-07-01] MEDS ORDERED: ELIQUIS5 MG PO (21:19)
[2017-07-01] MEDS ORDERED: SIMVASTATIN20 MG PO (21:20)
[2017-07-01] MEDS ORDERED: ASPIRIN81 MG PO (21:20)
[2017-07-01] MEDS ORDERED: OXYCODONE HCL10 MG PO (21:20)
[2017-07-01] MEDS ORDERED: TIZANIDINE HCL4 M1 PO (21:20)
[2017-07-01] MEDS ORDERED: ACETAMINOPHEN1 EAC1 PO (21:21)
[2017-07-01] MEDS ORDERED: TOPAMAX25 MG PO (21:21)
[2017-07-01] MEDS ORDERED: SOTALOL AF80 M1 PO (21:22)
[2017-07-01] MEDS ORDERED: ADVAIR 250-501 EAC1 INH (21:22)
[2017-07-01] MEDS ORDERED: PHENERGAN25 M1 PO (21:22)
[2017-07-03 03:49] LABS: HEMATOCRIT 39.3 % (35.0-45.0); HEMOGLOBIN 12.5 gm/dL (12.0-16.0); MEAN CELL VOLUME 92.6 FL (83-96); MEAN CORPUSCULAR HEMOGLOBIN 29.5 PG (28-34); MEAN CORPUSCULAR HGB CONC 31.9 g/dL (30-36); MEAN PLATELET VOLUME 10.2 FL (6.5-11.5); RED BLOOD COUNT 4.24 X10e (3.90-5.30); RED CELL DISTRIBUTION WIDTH 15.7 % (11.0-15.5); WHITE BLOOD COUNT 15.6 X10e3 (4.0-10.5)
[2017-07-03 08:23] LABS: BUN/CREATININE RATIO 16.66; CALCIUM SERUM 9.3 mg/dL (8.4-10.2); CREATININE SERUM 0.6 mg/dL (0.6-1.4); POTASSIUM 3.6 mmol/L (3.5-5.1)
[2017-07-03] MEDS ORDERED: BACTRIM DS TAB1 EACH PO (09:33)
== END 2017-07-03 11:26 | disposition home or self-care (01) | DRG 872 ==
LOC: CED 17:47 → C4C 23:00 → CED 23:07 → C4C 23:07
PROVIDERS: Emergency Medicine; Internal Medicine
DX: A41.9 Sepsis, unspecified organism (principal); I48.0 Paroxysmal atrial fibrillation; K51.90 Ulcerative colitis, unspecified, without complications; L03.115 Cellulitis of right lower limb; Z79.01 Long term (current) use of anticoagulants; J45.909 Unspecified asthma, uncomplicated; K21.9 Gastro-esophageal reflux disease without esophagitis; E78.5 Hyperlipidemia, unspecified; E66.9 Obesity, unspecified; Z68.32 Body mass index [BMI] 32.0-32.9, adult; Z90.49 Acquired absence of other specified parts of digestive tract; Z96.651 Presence of right artificial knee joint; Z86.14 Personal history of Methicillin resistant Staphylococcus aureus infection
CPT/HCPCS: 36415; 73610; 80048; 84550; 85025; 85027; 85610; 85652; 85730; 86140; 87040; 93971; 99285; J0696; J2270; J2405; J3370